=== PATIENT | male | born 1975 | race Caucasian/White ===

== ENCOUNTER 2021-03-31 18:15 | Emergency (ER) | payer OTHER ==
[~2021-03-31] VITALS: Ht 175.3 cm; Wt 99.8 kg
[2021-03-31] MEDS ORDERED: JANUMET 50-1,01 EACH PO (18:25)
[2021-03-31] MEDS ORDERED: LEVEMIR100 UNIT/1 (18:25)
[2021-03-31] MEDS ORDERED: TESSALON PERLE100 MG PO (20:19)
[2021-03-31 20:42] VITALS: BP 138/88
== END 2021-03-31 20:43 | disposition home or self-care (01) ==
LOC: M.ERS 18:15
DX: U07.1 COVID-19 (principal); E11.9 Type 2 diabetes mellitus without complications; Z90.49 Acquired absence of other specified parts of digestive tract; Z79.84 Long term (current) use of oral hypoglycemic drugs; Z90.89 Acquired absence of other organs